=== PATIENT | male | born 1970 | race African-American/Black ===

== ENCOUNTER 2016-11-02 10:57 | Emergency (ER) | payer SELFPAY ==
[2016-11-02] MEDS ORDERED: KETOROLAC 60 MG/2 ML VIAL IVP STA (13:56)
[2016-11-02] MEDS ORDERED: KETOROLAC 30 MG/ML VIAL ONE (14:06)
== END 2016-11-02 15:49 | disposition home or self-care (01) ==
DX: M79.641 Pain in right hand (principal); M79.642 Pain in left hand; R20.0 Anesthesia of skin; R07.9 Chest pain, unspecified

== ENCOUNTER 2016-12-05 11:04 | Emergency (ER) | payer SELFPAY ==
[2016-12-05] MEDS ORDERED: cefTRIAXone 1 GM in SODIUM CHLORIDE 0.9% MINIBAG 100 ML IV STA (12:13)
[2016-12-05] MEDS ORDERED: DEXAMETHASONE 10 MG/ML VIAL PO STA (12:13)
[2016-12-05] MEDS ORDERED: CHERRY SYRUP 10 ML UDC PO ONE (12:16)
[2016-12-05] MEDS ORDERED: cefTRIAXone 1 GM VIAL ONE (12:16)
[2016-12-05] MEDS ORDERED: DEXAMETHASONE 10 MG/ML VIAL ONE (12:16)
== END 2016-12-05 14:26 | disposition home or self-care (01) ==
DX: J18.9 Pneumonia, unspecified organism (principal)
CPT/HCPCS: 36415; 71020; 80053; 83690; 84484; 85025; 93005; 93010; 96374; 99283; 99284; A9270

== ENCOUNTER 2017-01-11 04:39 | Outpatient (CLI) | payer SELFPAY | END 2017-01-11 04:40 | disposition critical access hospital (66) | DX: M25.562 Pain in left knee (principal); R26.2 Difficulty in walking, not elsewhere classified; V18.4XXA Pedal cycle driver injured in noncollision transport accident in traffic accident, initial encounter | CPT/HCPCS: A0425; A0429 ==